=== PATIENT | female | born 1985 | race Caucasian/White ===

== ENCOUNTER 2020-10-22 20:58 | Emergency (ER) | payer BC ==
[2020-10-23] MEDS ORDERED: CYCLOBENZAPRINE5 MG PO (04:06)
[2020-10-23] MEDS ORDERED: IBUPROFEN800 MG PO (04:06)
== END 2020-10-23 04:38 | disposition home or self-care (01) ==
LOC: ER1 20:58
DX: S70.02XA Contusion of left hip, initial encounter (principal); M54.9 Dorsalgia, unspecified; R51.9 Headache, unspecified; V49.40XA Driver injured in collision with unspecified motor vehicles in traffic accident, initial encounter; Y92.410 Unspecified street and highway as the place of occurrence of the external cause
CPT/HCPCS: 70450; 72125; 73552; 81001; 84703; 99284

== ENCOUNTER → 2021-01-18 | Outpatient (CLI) | payer BC ==
[~2021-01-18] MED LIST: CYCLOBENZAPRINE5 MG PO; IBUPROFEN800 MG PO
== END ==
LOC: EXRD 15:25
DX: M54.5 Low back pain (principal); M47.815 Spondylosis without myelopathy or radiculopathy, thoracolumbar region; V89.2XXA Person injured in unspecified motor-vehicle accident, traffic, initial encounter
CPT/HCPCS: 72070; 72110

== ENCOUNTER → 2021-06-19 | Outpatient (CLI) | payer BC | LOC: LAB 17:32 | DX: N92.6 Irregular menstruation, unspecified (principal) | CPT/HCPCS: 84702 ==